=== PATIENT | male | born 1960 | race Caucasian/White ===

== ENCOUNTER → 2017-12-10 | Outpatient (CLI) | payer BC ==
[~2017-12-10] VITALS: Ht 174 cm; Wt 73.6 kg
[~2017-12-10] MED LIST: ADVIL200 MG PO; CRESTOR5 MG PO; PROTONIX 40MG T40 MG PO; TUMS DUAL ACTIO1 CTB PO; VITAMIN D32000 I1 PO; VITAMIN K0.1 MG PO
[2017-12-10 06:42] VITALS: BP 131/84; PULSE 76
[2017-12-10 07:51] VITALS: BP 146/87; PULSE 97
[2017-12-10 07:52] VITALS: BP 148/86; PULSE 93
[2017-12-10 07:53] VITALS: BP 134/83; PULSE 88
== END ==
LOC: COL.CARD 06:29
DX: I34.0 Nonrheumatic mitral (valve) insufficiency (principal); R06.00 Dyspnea, unspecified; R07.9 Chest pain, unspecified
CPT/HCPCS: A9502; J2785